=== PATIENT | male | born 1995 ===

== ENCOUNTER 2021-12-05 14:42 | Day surgery (SDC) | payer OTHER ==
[~2021-12-05 14:42] MED LIST: Iopamidol-370 76% 500 ML 1 ML ONE
[2021-12-05 15:14] LABS: #Eosinphils 0.1 thou/uL (0.0-0.7); #Lymphocytes 1.4 thou/uL (1.20-3.40); #Monocytes 0.7 thou/uL (0.11-0.59); #Neutrophils 7.8 thou/uL (1.40-6.50); %Basophils 0.3 % (0.0-1.0); %Eosinophils 0.9 % (0.0-10.0); %Lymphocytes 13.9 % (21.0-51.0); %Monocytes 7.2 % (0.0-10.0); %Neutrophils 77.7 % (42.0-75.0); Hemoglobin 14.7 g/dL (14.0-18.0); Mean Corpuscular HGB CONC 33.2 g/dL (32.0-36.0); Mean Corpuscular Hemoglobin 30.7 pg (27.0-31.0); Mean Corpuscular Volume 92.3 fL (78.0-98.0); Mean Platelet Volume 8.3 fL (7.4-10.4); Platelet Count 176 thou/uL (130-400); Red Blood Cell (RBC) Count 4.79 mill/uL (4.70-6.10)
[2021-12-05 15:34] LABS: ALT (SGPT) 11 U/L (8-55); AST (SGOT) 17 U/L (5-34); Albumin 4.7 g/dL (3.5-5.0); Alkaline Phosphatase 72 U/L (40-110); Anion Gap 17 mmol/L (10-20); BUN (Urea Nitrogen) 9 mg/dL (8.9-20.6); Calc. Creatinine Clearance 0 mL/min (70-130); Calcium 9.6 mg/dL (7.8-10.44); Carbon Dioxide 24 mmol/L (22-29); Chloride 105 mmol/L (98-107); Estimated GFR 108; Globulin 2.5 g/dL (2.4-3.5); Glucose 105 mg/dL (70-105); Potassium 4.2 mmol/L (3.5-5.1); Protein, Total 7.2 g/dL (6.0-8.3); Sodium 142 mmol/L (136-145)
[2021-12-05 18:19] LABS: Bilirubin Negative (Negative); Blood, Urine Negative (Negative); Clarity Turbid (Clear); Glucose, Urine (Dipstick) Normal (Negative); Ketone, Urine Negative (Negative); Leukocyte Negative Leu/uL (Negative); Nitrite Negative (Negative); Protein, Urine (Dipstick) Negative (Neg-Trace); Specific Gravity, Urine 1.025 (1.002-1.036); Urobilinogen Normal mg/dL (Less than 2)
[2021-12-05] MEDS ORDERED: Piperacillin/Tazobactam 4.5 GM VIAL ONE (18:44)
[2021-12-05] MEDS ORDERED: fentaNYL Citrate/PF 100 MCG/2 ML SYRINGE ONE (18:44)
[2021-12-05] MEDS ORDERED: Bupivacaine/Epinephrine 0.25% 30 ML VIAL ONE (18:45)
[2021-12-05] MEDS ORDERED: PROPOFOL 200 MG/20 ML VIAL ONE (19:25)
[2021-12-05] MEDS ORDERED: Dexamethasone 20 MG/5 ML VIAL ONE (19:25)
[2021-12-05] MEDS ORDERED: Rocuronium Bromide 10 MG/ML (10ML VIAL) ONE (19:25)
[2021-12-05] MEDS ORDERED: Ketorolac Tromethamine 30 MG/ML VIAL ONE (19:25)
[2021-12-05] MEDS ORDERED: Ondansetron PF 4 MG/2 ML Vial ONE (19:25)
[2021-12-05] MEDS ORDERED: Lidocaine 1% MPF 2 ML VIAL ONE (19:25)
[2021-12-05 20:05] LABS: SARS-CoV-2 NAA Rapid Test Not Detected (NotDetected)
[2021-12-05] MEDS ORDERED: SUGAMMADEX SODIUM 200 MG/2 ML VIAL ONE (20:11)
[2021-12-05] MEDS ORDERED: HYDROcodone/Acetaminophen 5/325 mg Tablet ONE ×2 (21:00→21:01)
== END 2021-12-05 21:25 | disposition home or self-care (01) ==
LOC: ERS 14:42 → SDC/OP 18:59
PROVIDERS: ATTEND Surgery
PROC: 0DTJ4ZZ Resection of Appendix, Percutaneous Endoscopic Approach (ICD-10-PCS; principal; 2021-12-05)
DX: K35.80 Unspecified acute appendicitis (principal); Z20.822 Contact with and (suspected) exposure to COVID-19
CPT/HCPCS: 36415; 74177; 80053; 81003; 85025; 88304; A4649; C1776; J1100; J1885; J2405; J2543; J2704; Q9967; U0002